=== PATIENT | male | born 1980 | race Caucasian/White ===

== ENCOUNTER 2018-12-17 13:16 | Emergency (ER) | payer OTHER ==
[~2018-12-17] VITALS: Ht 165.1 cm; Wt 88.0 kg
[2018-12-17] MEDS ORDERED: LIPI10TA PO (13:22)
[2018-12-17 13:49] LABS: BASO # 0.1 10^3/uL (0.0-0.2); BASO % 0.5 % (0.0-1.0); EOS # 0.3 10^3/uL (0.0-0.5); EOS % 2.1 % (0.0-3.0); HEMOGLOBIN 16.6 g/dl (13.5-17.5); LYMPH # 1.9 10^3/uL (1.5-5.0); LYMPH % 13.4 % (24.0-44.0); MEAN CORPUSCULAR HEMOGLOBIN 30.2 pg (27.0-33.0); MEAN CORPUSCULAR HGB CONC 33.9 g/dl (32.0-36.5); MEAN CORPUSCULAR VOLUME 89.1 fl (80.0-96.0); MONO # 1.1 10^3/uL (0.0-0.8); MONO % 7.5 % (0.0-5.0); NEUTROPHILS # 10.7 10^3/uL (1.5-8.5); NEUTROPHILS % 76.1 % (36.0-66.0); PLATELET COUNT, AUTOMATED 199 10^3/uL (150-450)
[2018-12-17] MEDS ORDERED: ONDANSETRON 4MG/2ML VIAL (J2405) IV ONE (14:00)
[2018-12-17] MEDS ORDERED: MORPHINE 4 MG/ML 1ML VIAL/SYRINGE (J2270) IV ONE ×2 (14:00→14:30)
[2018-12-17 14:14] LABS: ALBUMIN 4.1 GM/DL (3.2-5.2); BILIRUBIN,DIRECT 0.3 MG/DL (0.0-0.2); BILIRUBIN,TOTAL 1.6 MG/DL (0.2-1.0); TOTAL PROTEIN 7.3 GM/DL (6.4-8.2)
[2018-12-17] MEDS ORDERED: LIDO5TD TOP (14:44)
[2018-12-17] MEDS ORDERED: NAPR500T6 PO (14:44)
[2018-12-17] MEDS ORDERED: NS 1,000 ML IV ONE (15:30)
[2018-12-17] MEDS ORDERED: TAMSULOSIN 0.4 MG CAP PO ONE (15:30)
[2018-12-17] MEDS ORDERED: LIDOCAINE 5% (LIDODERM) PATCH TD ONE (16:00)
[2018-12-17 16:26] VITALS: BP 120/75
[2018-12-17] MEDS ORDERED: NORC1TAB7 PO (16:28)
[2018-12-17] MEDS ORDERED: ONDA4TAB6 PO (16:28)
[2018-12-17] MEDS ORDERED: **NOTE PATIENT COMMENT** MISC XX SCH (21:00)
--- NOTE | 2018-12-18 07:30 | REP ---
CT ABDOMEN PELVIS WITHOUT CONTRAST: 12/17/2018. Clinical history: Renal stone disease. Findings: No prior study. Renal stone protocol. CT abdomen: Lung bases are clear. The heart is not enlarged. There is no pericardial thickening or effusion. I see no hiatal hernia. Some retained fluid and food in the stomach noted. No hepatosplenomegaly, focal hepatic mass, fatty infiltration or biliary dilatation within the liver. Gallbladder shows a few small calcified stones in its dependent portion. No dilated common duct or calcification visible within. Pancreas unremarkable. Adrenal glands normal. Spleen not enlarged without focal lesion. The aorta is without aneurysm. There are multiple periaortic and aortocaval surgical clips from prior lymph node dissection for testicular carcinoma. No periaortic, retroperitoneal or mesenteric pathologic sized adenopathy. There are scattered nodes visible and up to 6 mm in diameter which I would regard as normal. The kidneys show no definite stone, hydronephrosis, mass or cyst. There is a small defect or scar at the lower pole on the right. No hydroureter or stone on the left. There is a mild hydroureter on the right and on image 133 of the axial sequence and 52 of the coronal reconstructions. There is a 4 mm stone present. This is about 1.7 cm from the bladder on the coronal reconstruction. Small bowel loops unremarkable. Colon intact. There is no ascites. No perinephric edema. Lung window review shows no free air in the abdomen or pelvis. Bone windows demonstrate some minor old wedging at L1, grade 1 with no acute compression fracture, destructive lesion. Posterior elements intact. The visualized ribs are intact. CT pelvis: The sacrum, SI joints, pelvis and hips show no acute finding. There are a couple of sclerotic bone islands in the left acetabular roof and one in the posterior column of the right acetabulum. The hips and proximal femoral shafts were unremarkable. Symphysis pubis and pubic rami intact. The distal left colon, sigmoid and rectum are unremarkable. Bladder shows no mass, wall thickening or stone. Distal ureter on the left without stone or wall thickening. There is no ventral or inguinal hernia. However, the right jacinda scrotum shows a large fluid collection well-defined with what appears to be a testis posteriorly within it. This could be chronic hydrocele or some other mass. Extends up a portion of the inguinal canal. There are no other findings. In particular, no right inguinal or pelvic adenopathy. Impression: 1. There is nearly 4 mm stone distal ureter on the right about 1.7 cm from the UVJ with mild hydroureter but no significant hydronephrosis. No other stone. 2. There are clips in the periaortic and aortocaval region along the spine for retroperitoneal lymph node dissection related to his stated history of testicular carcinoma. 3. There is a large cystic mass-like configuration in the scrotum up to 13 x 7.4 x 7.7 cm mostly fluid density posteriorly there is an oval 3 x 2.9 x 4.2 cm focus peripherally within this fluid collection that could be his testis. I do not see other significant finding. This may reflect chronic hydrocele or other postsurgical process. This is certainly unusual in my experience and urologic consultation may be relevant. Any further imaging should be directed by that health and wellness sales consultant in my opinion. Discussed by phone with the attending physician in the ED. Electronically Signed by Rambo Andre MD 12/18/2018 08:46 A
--- NOTE | 2018-12-18 07:41 | REP ---
SCROTAL ULTRASOUND: 12/17/2018. Clinical history: Left orchiectomy in 2013 for testicular carcinoma. Now with firm swollen right hemiscrotum, the patient states for 2 years. Findings: Sonographic evaluation of the scrotum with absence of the left testis noted shows a very large right hydrocele 12 x 7 x 9.4 cm. This extends up into the lower aspect of the inguinal canal. Peripherally echogenic focus consistent with calcification about 6.5 mm on the scrotal wall which is seen by CT as well. Posteriorly there is a homogeneous testis 5.4 x 2.6 x 2.6 cm. There is normal color flow with Doppler tracing showing resistive index of 0.54. No scrotal mass, heterogeneity or cyst within the scrotum. The epididymis is poorly depicted due to the massive nature of the hydrocele. Impression: 1. 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 2. Very large right hydrocele 12 x 9.4 x 7 cm with a well-defined margin and peripheral calcification about 6.5 mm in greatest diameter. This corresponds to CT findings. 3. Posteriorly within this large hydrocele is a homogeneous testis seen at 5.4 x 2.6 x 2.6 cm. This has normal Doppler tracing and no mass, intratesticular cyst or calcification. 4. The patient should follow-up with urology. Electronically Signed by Rambo Andre MD 12/18/2018 08:52 A
== END 2018-12-17 16:47 | disposition home or self-care (01) ==
LOC: M ED 13:16
DX: N13.2 Hydronephrosis with renal and ureteral calculous obstruction (principal); N28.9 Disorder of kidney and ureter, unspecified; J30.2 Other seasonal allergic rhinitis; Z87.442 Personal history of urinary calculi; E78.5 Hyperlipidemia, unspecified; Z85.47 Personal history of malignant neoplasm of testis; N50.89 Other specified disorders of the male genital organs; Z90.79 Acquired absence of other genital organ(s); Z79.899 Other long term (current) drug therapy
CPT/HCPCS: 74176; 76870; 80047; 80076; 81001; 83690; 85025; 93976; 96374; 96375; 99284; J2270; J2405

== ENCOUNTER → 2019-05-29 | Outpatient (CLI) | payer OTHER ==
[~2019-05-29] MED LIST: LIDO5TD TOP; LIPI10TA PO; NAPR500T6 PO; NORC1TAB7 PO; ONDA4TAB6 PO
[2019-05-29 08:49] LABS: HEMATOCRIT 49.2 % (42.0-52.0); HEMOGLOBIN 16.6 g/dl (13.5-17.5); MEAN CORPUSCULAR HEMOGLOBIN 29.3 pg (27.0-33.0); MEAN CORPUSCULAR HGB CONC 33.7 g/dl (32.0-36.5); MEAN CORPUSCULAR VOLUME 86.8 fl (80.0-96.0); PLATELET COUNT, AUTOMATED 228 10^3/uL (150-450); RED BLOOD COUNT 5.67 10^6/uL (4.30-6.10); WHITE BLOOD COUNT 6.9 10^3/uL (4.0-10.0)
[2019-05-29 09:17] LABS: BLOOD UREA NITROGEN 23 MG/DL (7-18); CALCIUM LEVEL 9.3 MG/DL (8.5-10.1); CARBON DIOXIDE LEVEL 29 MEQ/L (21-32); CHLORIDE LEVEL 106 MEQ/L (98-107); CREATININE FOR GFR 0.99 MG/DL (0.70-1.30); GLOMERULAR FILTRATION RATE > 60.0 (>60); GLUCOSE, FASTING 84 MG/DL (70-100); POTASSIUM SERUM 4.4 MEQ/L (3.5-5.1); SODIUM LEVEL 140 MEQ/L (136-145)
== END ==
LOC: M LAB 08:08
PROVIDERS: ATTEND Urology
DX: Z01.818 Encounter for other preprocedural examination (principal); N43.3 Hydrocele, unspecified

== ENCOUNTER 2019-06-18 06:03 | Day surgery (SDC) | payer OTHER ==
[~2019-06-18] VITALS: Ht 170.2 cm; Wt 88.5 kg
[~2019-06-18 06:03] MED LIST changes: +LR 1,000 ML IV ONE
[2019-06-18] MEDS ORDERED: ceFAZolin SOD 2 GM in IV 1 EA IV ONE (07:00)
[2019-06-18] MEDS ORDERED: propofoL 200 MG/20 ML VIAL As Ordered ONE (07:11)
[2019-06-18] MEDS ORDERED: fentaNYL 250 MCG/5 ML INJECTION (J3010) As Ordered ONE (07:11)
[2019-06-18] MEDS ORDERED: LIDOCAINE 2% INJ 100 MG/5 ML SDV (FOR ANES.) As Ordered ONE (07:11)
[2019-06-18] MEDS ORDERED: MIDAZOLAM INJ 2 MG/2 ML VIAL (J2250) As Ordered ONE (07:12)
[2019-06-18] MEDS ORDERED: NAPR-885 (07:19)
[2019-06-18] MEDS ORDERED: LIDO1PAD (07:19)
[2019-06-18] MEDS ORDERED: dexameTHASONE 4 MG/ML 1ML VIAL (J1100) As Ordered ONE (07:48)
[2019-06-18] MEDS ORDERED: LIDOCAINE 1% MDV 20ML VIAL As Ordered ONE (07:52)
[2019-06-18] MEDS ORDERED: BUPIVACAINE HCL 0.25% 10ML VIAL As Ordered ONE (07:52)
[2019-06-18] MEDS ORDERED: ONDANSETRON 4MG/2ML VIAL (J2405) As Ordered ONE (08:10)
[2019-06-18] MEDS ORDERED: BACITRACIN OINTMENT 30GM TUBE As Ordered ONE (08:41)
[2019-06-18] MEDS ORDERED: ONDANSETRON 4MG/2ML VIAL (J2405) IV PRN (09:15)
[2019-06-18] MEDS ORDERED: PERCOCET 5MG/325MG TAB PO PRN (09:15)
[2019-06-18] MEDS ORDERED: LR 1,000 ML IV SCH (09:15)
[2019-06-18] MEDS ORDERED: fentaNYL 100 MCG/2 ML INJECTION (J3010) IV PRN (09:15)
--- NOTE | 2019-06-18 09:38 | RO ---
DATE OF PROCEDURE: 06/18/2019 PREPROCEDURE DIAGNOSIS: Right hydrocele. POSTPROCEDURE DIAGNOSIS: Right hydrocele. PROCEDURE: Right hydrocelectomy. SURGEON: Juancarlos Kenyon MD CERTIFIED PARALEGAL: LINO Sosa ANESTHESIA: General. OPERATIVE INDICATIONS: This is a 38-year-old male with a large right hydrocele who was brought to the operating room today for treatment. DESCRIPTION OF PROCEDURE: The patient was brought to the operating room and general anesthesia was induced. Prophylactic antibiotics were infused. He was placed in supine position and prepped and draped in the usual sterile fashion. At this point, an approximately 4 cm transverse incision was made over the right hemiscrotum. We then dissected down through the scrotal wall layers using electrocautery. The testicle was then delivered out of the right hemiscrotum. The tunica vaginalis was then punctured and then a large amount of serous fluid drained from the right hydrocele. The hydrocele sac was then excised using electrocautery. We then over sewed the edges of the hydrocele sac using running #3-0 Vicryl sutures. Once that was done, we checked for hemostasis and any small areas of bleeding were controlled with electrocautery. The testicle was then delivered back inside the right hemiscrotum in its normal anatomic position. Throughout the procedure I made sure not to cause any damage to the testicle, blood supply or the vas deferens. Once that was done, the dartos was closed with a running #3-0 Vicryl suture. The skin was then closed with interrupted #2-0 chromic suture. Dressings were applied and this marked the conclusion of the procedure. The patient was then awakened from anesthesia and transferred for the recovery room in stable condition. ESTIMATED BLOOD LOSS: 5 mL. COMPLICATIONS: None. SPECIMENS: Right hydrocele sac. PLAN: The patient will followup in the clinic in a few weeks for a postoperative visit. BONNIE
[2019-06-18 10:50] VITALS: BP 123/82
== END 2019-06-18 11:10 | disposition home or self-care (01) ==
LOC: M SDC 06:03
PROVIDERS: ATTEND Urology
DX: N43.3 Hydrocele, unspecified (principal); Z85.47 Personal history of malignant neoplasm of testis; Z92.21 Personal history of antineoplastic chemotherapy
CPT/HCPCS: 55040; 88302; J0690; J1100; J2250; J2405; J3010

== ENCOUNTER → 2021-03-06 | Outpatient (CLI) | payer OTHER ==
[~2021-03-06] MED LIST changes: +LIDO1PAD; -LR 1,000 ML IV ONE; +NAPR-885
[2021-03-06 13:30] LABS: LDH LACTATE DEHYDROGENASE 138 U/L (87-241)
== END ==
LOC: M LAB 12:24
PROVIDERS: ATTEND Urology
DX: Z85.47 Personal history of malignant neoplasm of testis (principal)

== ENCOUNTER → 2021-08-11 | Outpatient (REF) | LOC: M PLALAB 12:26 | PROVIDERS: ATTEND Internal Medicine | DX: M19.90 Unspecified osteoarthritis, unspecified site (principal) ==